=== PATIENT | female | born 1950 | race Caucasian/White ===

== ENCOUNTER 2021-11-14 08:00 | Inpatient (IN) | payer OTHER, MEDICARE, BC ==
[2021-11-14] MEDS ORDERED: Polyethylene Glycol 3350 Powder 17 GM Packet PO PRN (14:12)
[2021-11-14] MEDS ORDERED: Bisacodyl 10 MG Supp RECTAL PRN (14:19)
[2021-11-14] MEDS ORDERED: hydrOXYzine HCl 25 MG Tab PO PRN (14:22)
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
[2021-11-14] MEDS: Ibuprofen 200 MG Tab PO SCH (17:04)
[2021-11-14] MEDS: Acetaminophen 500 MG Tab PO SCH (17:04)
[2021-11-14] MEDS: Calcium Carbonate 500 MG Tablet PO SCH (17:05)
[2021-11-14] MEDS ORDERED: Non-Formulary Medication 1 Each (Calcium Citrate/Vitamin D3 [Calcium Cit 315 Mg-D3 250 Uni PO SCH (18:00)
[2021-11-14] MEDS: Bacitracin Oint 28.35 GM Tube TOP SCH (21:09)
[2021-11-14] MEDS: Famotidine 20 MG Tab PO SCH (21:09)
[2021-11-14] MEDS: traMADol 50 MG Tab PO PRN (21:17)
[2021-11-15] MEDS: Ibuprofen 200 MG Tab PO SCH ×4 (00:11→17:49)
[2021-11-15] MEDS: Acetaminophen 500 MG Tab PO SCH ×4 (00:11→17:48)
[2021-11-15] MEDS: Levothyroxine 100 MCG Tab PO SCH (06:03)
[2021-11-15] MEDS: Bacitracin Oint 28.35 GM Tube TOP SCH ×2 (09:34→20:48)
[2021-11-15] MEDS: Chondroitin/Glucosamine Cap PO SCH (09:34)
[2021-11-15] MEDS: Calcium Carbonate 500 MG Tablet PO SCH ×2 (09:34→17:49)
[2021-11-15] MEDS: Enoxaparin 40 MG/0.4 ML Syringe SUBCUT SCH (09:34)
[2021-11-15] MEDS: Famotidine 20 MG Tab PO SCH ×2 (09:35→20:48)
[2021-11-15] MEDS: Cholecalciferol (Vitamin D3) 25 MCG Tab PO SCH (09:35)
[2021-11-15] MEDS: traMADol 50 MG Tab PO PRN ×2 (09:40→20:48)
[2021-11-16] MEDS: Acetaminophen 500 MG Tab PO SCH ×5 (00:07→23:09)
[2021-11-16] MEDS: Ibuprofen 200 MG Tab PO SCH ×5 (00:07→23:10)
[2021-11-16] MEDS: Levothyroxine 100 MCG Tab PO SCH (05:15)
[2021-11-16] MEDS: traMADol 50 MG Tab PO PRN ×2 (09:18→20:35)
[2021-11-16] MEDS: Famotidine 20 MG Tab PO SCH ×2 (09:19→20:35)
[2021-11-16] MEDS: Cholecalciferol (Vitamin D3) 25 MCG Tab PO SCH (09:19)
[2021-11-16] MEDS: Chondroitin/Glucosamine Cap PO SCH (09:19)
[2021-11-16] MEDS: Bacitracin Oint 28.35 GM Tube TOP SCH ×2 (09:20→20:35)
[2021-11-16] MEDS: Enoxaparin 40 MG/0.4 ML Syringe SUBCUT SCH (09:20)
[2021-11-16] MEDS: Calcium Carbonate 500 MG Tablet PO SCH ×3 (11:55→17:57)
[2021-11-17] MEDS: Levothyroxine 100 MCG Tab PO SCH (05:39)
[2021-11-17] MEDS: Ibuprofen 200 MG Tab PO SCH ×4 (05:39→23:27)
[2021-11-17] MEDS: Acetaminophen 500 MG Tab PO SCH ×4 (05:40→23:25)
[2021-11-17] MEDS: Cholecalciferol (Vitamin D3) 25 MCG Tab PO SCH (08:28)
[2021-11-17] MEDS: Famotidine 20 MG Tab PO SCH ×2 (08:28→21:13)
[2021-11-17] MEDS: Chondroitin/Glucosamine Cap PO SCH (08:28)
[2021-11-17] MEDS: Enoxaparin 40 MG/0.4 ML Syringe SUBCUT SCH (08:28)
[2021-11-17] MEDS: Bacitracin Oint 28.35 GM Tube TOP SCH (11:42)
[2021-11-17] MEDS: Calcium Carbonate 500 MG Tablet PO SCH ×2 (11:44→18:26)
[2021-11-17] MEDS: traMADol 50 MG Tab PO PRN ×2 (14:13→21:14)
[2021-11-18] MEDS: Acetaminophen 500 MG Tab PO SCH ×4 (05:00→23:25)
[2021-11-18] MEDS: Ibuprofen 200 MG Tab PO SCH ×4 (05:00→23:24)
[2021-11-18] MEDS: Levothyroxine 100 MCG Tab PO SCH (05:46)
[2021-11-18] MEDS: Chondroitin/Glucosamine Cap PO SCH (08:09)
[2021-11-18] MEDS: Enoxaparin 40 MG/0.4 ML Syringe SUBCUT SCH (08:09)
[2021-11-18] MEDS: Famotidine 20 MG Tab PO SCH ×2 (08:10→21:36)
[2021-11-18] MEDS: Cholecalciferol (Vitamin D3) 25 MCG Tab PO SCH (08:11)
[2021-11-18] MEDS: traMADol 50 MG Tab PO PRN ×2 (08:56→21:36)
[2021-11-18] MEDS: Bacitracin Oint 28.35 GM Tube TOP SCH ×2 (09:12→09:24)
[2021-11-18] MEDS: Calcium Carbonate 500 MG Tablet PO SCH ×2 (11:51→17:26)
[2021-11-19] MEDS: Acetaminophen 500 MG Tab PO SCH ×3 (05:09→18:16)
[2021-11-19] MEDS: Ibuprofen 200 MG Tab PO SCH ×3 (05:10→18:14)
[2021-11-19] MEDS: Levothyroxine 100 MCG Tab PO SCH (05:12)
[2021-11-19] MEDS: Enoxaparin 40 MG/0.4 ML Syringe SUBCUT SCH (08:37)
[2021-11-19] MEDS: Bacitracin Oint 28.35 GM Tube TOP SCH (08:41)
[2021-11-19] MEDS: Famotidine 20 MG Tab PO SCH ×2 (08:42→20:51)
[2021-11-19] MEDS: Chondroitin/Glucosamine Cap PO SCH (08:42)
[2021-11-19] MEDS: traMADol 50 MG Tab PO PRN ×2 (08:49→20:47)
[2021-11-19] MEDS: Cholecalciferol (Vitamin D3) 25 MCG Tab PO SCH (09:58)
[2021-11-19] MEDS: Calcium Carbonate 500 MG Tablet PO SCH ×2 (11:28→18:16)
[2021-11-20] MEDS: Ibuprofen 200 MG Tab PO SCH ×4 (00:28→17:36)
[2021-11-20] MEDS: Acetaminophen 500 MG Tab PO SCH ×4 (00:30→17:35)
[2021-11-20] MEDS: Levothyroxine 100 MCG Tab PO SCH (05:55)
[2021-11-20] MEDS: Enoxaparin 40 MG/0.4 ML Syringe SUBCUT SCH (09:06)
[2021-11-20] MEDS: Chondroitin/Glucosamine Cap PO SCH (09:06)
[2021-11-20] MEDS: Bacitracin Oint 28.35 GM Tube TOP SCH (09:06)
[2021-11-20] MEDS: Cholecalciferol (Vitamin D3) 25 MCG Tab PO SCH (09:07)
[2021-11-20] MEDS: Famotidine 20 MG Tab PO SCH ×2 (09:07→21:16)
[2021-11-20] MEDS: Calcium Carbonate 500 MG Tablet PO SCH ×2 (11:38→17:36)
[2021-11-20] MEDS: traMADol 50 MG Tab PO PRN (21:17)
[2021-11-21] MEDS: Ibuprofen 200 MG Tab PO SCH ×2 (00:49→06:25)
[2021-11-21] MEDS: Acetaminophen 500 MG Tab PO SCH ×2 (00:50→06:26)
[2021-11-21] MEDS: Levothyroxine 100 MCG Tab PO SCH (06:25)
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
[2021-11-21] MEDS: Enoxaparin 40 MG/0.4 ML Syringe SUBCUT SCH (09:33)
[2021-11-21] MEDS: Cholecalciferol (Vitamin D3) 25 MCG Tab PO SCH (09:35)
[2021-11-21] MEDS: Chondroitin/Glucosamine Cap PO SCH (09:35)
[2021-11-21] MEDS: Famotidine 20 MG Tab PO SCH (09:36)
[2021-11-21] MEDS: Bacitracin Oint 28.35 GM Tube TOP SCH (09:37)
== END 2021-11-21 10:30 | disposition home or self-care (01) | DRG 561 ==
LOC: FB.MS 13:36
PROVIDERS: ADMIT Family Medicine; ATTEND Student in an Organized Health Care Education/Training Program
DX: S82.141D Displaced bicondylar fracture of right tibia, subsequent encounter for closed fracture with routine healing (principal); S92.002D Unspecified fracture of left calcaneus, subsequent encounter for fracture with routine healing; V89.2XXD Person injured in unspecified motor-vehicle accident, traffic, subsequent encounter; Z87.81 Personal history of (healed) traumatic fracture; E03.9 Hypothyroidism, unspecified; E78.5 Hyperlipidemia, unspecified; N81.6 Rectocele; Z79.890 Hormone replacement therapy; Z79.899 Other long term (current) drug therapy; Z90.710 Acquired absence of both cervix and uterus; Z90.49 Acquired absence of other specified parts of digestive tract
CPT/HCPCS: 97110-GO; 97110-GP; 97162-GP; 97166-GO; 97530-GO; 97530-GP; 97535-GO; 97542-GO; A9270-GY; J1650